=== PATIENT | female | born 1970 | race Two or more races ===

== ENCOUNTER 2021-08-13 10:31 | Emergency (ER) | payer SELFPAY ==
[~2021-08-13] VITALS: Ht 152.4 cm; Wt 57.0 kg
[2021-08-13 11:45] LABS: CLARITY URINE CLEAR (CLEAR); COLOR URINE YELLOW (YELLOW); KETONES URINE NEGATIVE (NEGATIVE); LEUKOCYTE ESTERASE URINE NEGATIVE (NEGATIVE); NITRITE URINE NEGATIVE (NEGATIVE); OCCULT BLOOD URINE 2+ (NEGATIVE); PH URINE 6.5 (4.5-8.0); PROTEIN URINE NEGATIVE (NEGATIVE); SPECIFIC GRAVITY URINE 1.011 (1.005-1.030); UROBILINOGEN URINE 0.2 E.U./dL (0.2-1.0)
[2021-08-13] MEDS ORDERED: METR500T MT (13:03)
[2021-08-13 13:43] VITALS: BP 138/63
[2021-08-14 09:09] LABS: HIV SCREEN 4G Non Reactive (Non Reactive)
[2021-08-16 09:07] LABS: HSV 1 & 2 AB IGM <0.91 Ratio (0.00-0.90)
[2021-08-16 19:09] LABS: NEISSERIA GONORRHOEAE NAA Negative (Negative)
== END 2021-08-13 13:45 | disposition home or self-care (01) ==
LOC: ER 12:06
DX: N76.0 Acute vaginitis (principal); B96.89 Other specified bacterial agents as the cause of diseases classified elsewhere; Z20.2 Contact with and (suspected) exposure to infections with a predominantly sexual mode of transmission; R03.0 Elevated blood-pressure reading, without diagnosis of hypertension
CPT/HCPCS: 81003; 81025; 86694; 86695; 86696; 87210; 87389; 87491; 87591; 99283

== ENCOUNTER 2023-10-20 17:12 | Inpatient (IN) | payer MEDICAID, OTHER ==
[~2023-10-20] VITALS: Ht 144.8 cm; Wt 64.4 kg
[~2023-10-20 17:12] MED LIST: METR500T MT
[2023-10-20 17:13] VITALS: O2SAT 100
[2023-10-20 18:16] LABS: BASOPHILS % 0.4 % (0.0-2.0); EOSINOPHILS % 1.2 % (0.0-5.0); HEMATOCRIT. 41.1 % (36.0-48.0); LYMPHOCYTES % 29.3 % (20.0-50.0); MEAN CORPUSCULAR HEMOGLOBIN 31.4 pg (28.0-32.0); MEAN CORPUSCULAR HGB CONC 34.1 g/dL (31.0-37.0); MEAN CORPUSCULAR VOLUME 92.3 fL (81.0-99.0); MEAN PLATELET VOLUME 7.3 fl (7.4-10.4); MONOCYTES % 5.1 % (2.0-8.0); PLATELET 371 x1000/uL (130-400); RED BLOOD CELL COUNT 4.45 mill/uL (4.2-5.4); RED CELL DISTRIBUTION WIDTH 13.1 % (11.6-14.6); WHITE BLOOD COUNT 7.6 x1000/uL (4.5-11.0)
[2023-10-20] MEDS: NITROGLYCERIN 0.4MG TABLET SL SL PRN (18:20)
[2023-10-20] MEDS: ONDANSETRON HCL 4MG/2ML INJ IV STA (18:21)
[2023-10-20] MEDS: MORPHINE SULFATE 4 MG/ML INJ (FOR IV/IM USE) IV STA (18:21)
[2023-10-20 18:22] LABS: CHLORIDE 107 mEq/L (98-107); POTASSIUM 3.4 mEq/L (3.5-5.1); SODIUM 139 mEq/L (136-145)
[2023-10-20 18:23] LABS: CARBON DIOXIDE 25 mEq/L (21-32)
[2023-10-20 18:28] LABS: CREATININE 0.5 mg/dL (0.6-1.0); D-DIMER < 0.19 mg/L FEU (<0.50); GLUCOSE 103 mg/dL (70-105); HCG SCREEN INDETERMINATE; PARTIAL THROMBOPLASTIN TIME 27.9 sec (23.4-31.0); UREA NITROGEN BLOOD 8 mg/dL (9-23)
[2023-10-20 18:30] LABS: ALANINE AMINOTRANSFERASE 14 IU/L (10-49); ALBUMIN 4.1 g/dL (3.2-4.8); ASPARTATE AMINOTRANSFERASE 18 IU/L (<34); BILIRUBIN TOTAL 0.5 mg/dL (0.1-1.0); PROTEIN TOTAL 6.9 g/dL (6.0-8.3)
[2023-10-20 18:34] LABS: TROPONIN I HIGH SENSITIVITY < 4 ng/L (3.0-34)
[2023-10-20 20:07] LABS: TROPONIN I HIGH SENSITIVITY < 4 ng/L (3.0-34)
[2023-10-20] MEDS: ASPIRIN 325MG EC TABLET PO ONE (21:10)
[2023-10-20] MEDS: IOHEXOL-350 100 ML BOTTLE ONE (21:44)
[2023-10-21 08:00] VITALS: BP 122/80; PULSE 62; RESP 16; TEMP 98.1
[2023-10-21 10:40] VITALS: BP 122/80; PULSE 62; RESP 16; TEMP 98.1
[2023-10-21] MEDS ORDERED: IPRATROPIUM/ALBUTEROL 0.5-3(2.5)MG/3ML NEB HHN PRN (10:45)
[2023-10-21] MEDS ORDERED: DOCUSATE SODIUM 100MG CAPSULE PO PRN (10:45)
[2023-10-21] MEDS ORDERED: ONDANSETRON HCL 4MG/2ML INJ IV PRN (10:45)
[2023-10-21] MEDS ORDERED: CLONIDINE 0.1MG TABLET PO PRN (10:45)
[2023-10-21] MEDS ORDERED: ACETAMINOPHEN 325MG TABLET PO PRN ×2 (10:45)
[2023-10-21 12:00] VITALS: BP 113/68; PULSE 65; RESP 20; TEMP 97.6
[2023-10-21 20:00] VITALS: BP 129/83; PULSE 82; RESP 18; TEMP 97.9
[2023-10-21 23:47] VITALS: BP 110/71; PULSE 76; RESP 15; TEMP 98
[2023-10-22 03:41] VITALS: BP 118/76; PULSE 66; RESP 18; TEMP 96.7
[2023-10-22 06:01] LABS: BASOPHILS % 0.3 % (0.0-2.0); EOSINOPHILS % 5.3 % (0.0-5.0); HEMATOCRIT. 37.8 % (36.0-48.0); HEMOGLOBIN. 12.9 g/dL (12.0-16.0); LYMPHOCYTES % 46.8 % (20.0-50.0); MEAN CORPUSCULAR HEMOGLOBIN 31.7 pg (28.0-32.0); MEAN CORPUSCULAR HGB CONC 34.1 g/dL (31.0-37.0); MEAN CORPUSCULAR VOLUME 92.9 fL (81.0-99.0); MEAN PLATELET VOLUME 7.6 fl (7.4-10.4); NEUTROPHILS % 40.6 % (40.0-76.0); PLATELET 334 x1000/uL (130-400); RED BLOOD CELL COUNT 4.07 mill/uL (4.2-5.4); WHITE BLOOD COUNT 6.9 x1000/uL (4.5-11.0)
[2023-10-22 06:21] LABS: CHLORIDE 109 mEq/L (98-107); POTASSIUM 3.6 mEq/L (3.5-5.1); SODIUM 143 mEq/L (136-145)
[2023-10-22 06:22] LABS: CALCIUM 8.7 mg/dL (8.7-10.4); CARBON DIOXIDE 27 mEq/L (21-32)
[2023-10-22 06:27] LABS: CREATININE 0.6 mg/dL (0.6-1.0); GLUCOSE 98 mg/dL (70-105); UREA NITROGEN BLOOD 9 mg/dL (9-23)
[2023-10-22 08:00] VITALS: BP 112/65; PULSE 62; RESP 18; TEMP 97.7
[2023-10-22 10:35] LABS: *AMPHETAMINES SCREEN URINE NEGATIVE (NEGATIVE); *BARBITURATES SCREEN URINE NEGATIVE (NEGATIVE); *BENZODIAZEPINES SCREEN URINE NEGATIVE (NEGATIVE); *COCAINE SCREEN URINE NEGATIVE (NEGATIVE); CANNABINOID URINE SCREEN NEGATIVE (NEGATIVE); ECSTASY MDMA SCREEN URINE NEGATIVE (NEGATIVE); METHADONE URINE SCREEN NEGATIVE (NEGATIVE); OPIATES URINE SCREEN NEGATIVE (NEGATIVE); PHENCYCLIDINE URINE SCREEN NEGATIVE (NEGATIVE)
[2023-10-22 12:00] VITALS: BP 117/63; PULSE 73; RESP 18; TEMP 97.7
[2023-10-22 16:00] VITALS: BP 122/82; PULSE 77; RESP 18; TEMP 98.4
[2023-10-22 20:00] VITALS: BP 135/77; PULSE 76; RESP 20; TEMP 97.5
[2023-10-23] VITALS: BP 140/91; PULSE 81; RESP 18; TEMP 97.5
[2023-10-23 04:00] VITALS: BP 99/57; PULSE 73; RESP 16; TEMP 97.1
[2023-10-23 05:57] LABS: BASOPHILS % 0.3 % (0.0-2.0); EOSINOPHILS % 5.6 % (0.0-5.0); HEMOGLOBIN. 13.1 g/dL (12.0-16.0); LYMPHOCYTES % 45.2 % (20.0-50.0); MEAN CORPUSCULAR HEMOGLOBIN 31.4 pg (28.0-32.0); MEAN CORPUSCULAR HGB CONC 33.7 g/dL (31.0-37.0); MEAN CORPUSCULAR VOLUME 93.2 fL (81.0-99.0); MEAN PLATELET VOLUME 7.9 fl (7.4-10.4); MONOCYTES % 8.2 % (2.0-8.0); NEUTROPHILS % 40.7 % (40.0-76.0); PLATELET 349 x1000/uL (130-400); RED BLOOD CELL COUNT 4.19 mill/uL (4.2-5.4); RED CELL DISTRIBUTION WIDTH 13.2 % (11.6-14.6); WHITE BLOOD COUNT 6.8 x1000/uL (4.5-11.0)
[2023-10-23 06:05] LABS: CHLORIDE 110 mEq/L (98-107); POTASSIUM 3.4 mEq/L (3.5-5.1); SODIUM 142 mEq/L (136-145)
[2023-10-23 06:06] LABS: CALCIUM 9.1 mg/dL (8.7-10.4); CARBON DIOXIDE 27 mEq/L (21-32)
[2023-10-23 06:11] LABS: CREATININE 0.7 mg/dL (0.6-1.0); GLUCOSE 100 mg/dL (70-105); UREA NITROGEN BLOOD 9 mg/dL (9-23)
[2023-10-23 08:10] VITALS: BP 132/66; PULSE 65; RESP 19; TEMP 97.6
[2023-10-23] MEDS ORDERED: MIDAZOLAM HCL 2 MG/2 ML VIAL ONE (11:27)
[2023-10-23] MEDS ORDERED: FENTANYL CITRATE/PF 50MCG/ML 2ML VIAL ONE (11:28)
[2023-10-23 11:49] VITALS: BP 135/83; PULSE 68; RESP 18; TEMP 98.1
[2023-10-23] MEDS ORDERED: DIPHENHYDRAMINE 50MG/ML VIAL ONE (12:01)
[2023-10-23] MEDS: AMLODIPINE 10MG TABLET PO SCH (13:30)
[2023-10-23] MEDS ORDERED: ACETAMINOPHEN 325MG TABLET PO PRN (13:30)
[2023-10-23] MEDS ORDERED: ATROPINE SULFATE 1MG/10ML SYR IV PRN (13:30)
[2023-10-23] MEDS ORDERED: AMLO10TA80 PO (15:49)
[2023-10-23] MEDS ORDERED: ATOR20TA PO (15:49)
[2023-10-23 16:20] VITALS: BP 175/86; PULSE 63; RESP 18; TEMP 98.3
[2023-10-23] MEDS ORDERED: ATORVASTATIN CALCIUM 20MG TABLET PO SCH (21:00)
== END 2023-10-23 20:50 | disposition home or self-care (01) | DRG 191 ==
LOC: ER 17:12 → EDBEDREQ 20:59 → 5WST 22:39 → 8WST 10-21 05:56
PROVIDERS: ADMIT Internal Medicine; ATTEND Internal Medicine
PROC: B41FYZZ Fluoroscopy of Right Lower Extremity Arteries using Other Contrast (ICD-10-PCS; principal; 2023-10-23)
PROC: 4A023N7 Measurement of Cardiac Sampling and Pressure, Left Heart, Percutaneous Approach (ICD-10-PCS; 2023-10-23)
PROC: B211YZZ Fluoroscopy of Multiple Coronary Arteries using Other Contrast (ICD-10-PCS; 2023-10-23)
DX: I25.119 Atherosclerotic heart disease of native coronary artery with unspecified angina pectoris (principal); E11.9 Type 2 diabetes mellitus without complications; I10 Essential (primary) hypertension; E78.5 Hyperlipidemia, unspecified; F17.210 Nicotine dependence, cigarettes, uncomplicated; N20.0 Calculus of kidney; N28.1 Cyst of kidney, acquired; Z82.49 Family history of ischemic heart disease and other diseases of the circulatory system
CPT/HCPCS: 36415; 71045; 71275; 74174; 80048; 80053; 80305; 83735; 83880; 84100; 84484; 84702; 84703; 85025; 85379; 93005; 93306; 93458; 99285; C1769; C1887; C1893; J1200; J2250; J2270; J2405; J3010; Q9967